=== PATIENT | female | born 1995 | race African-American/Black ===

== ENCOUNTER 2020-02-29 17:11 | Inpatient (IN) ==
[~2020-02-29 17:11] MED LIST: Famotidine 20 MG/2 ML VIAL IVP PRN; Metoclopramide 10 MG/2 ML VIAL IVP PRN; Naloxone 0.4 MG/ML INJ IVP PRN
[2020-02-29] MEDS ORDERED: Penicillin G Potassium 5,000,000 UNIT in 0.9 % Sodium Chloride Mini Bag 100 ML IVPB ONE (17:16)
[2020-02-29] MEDS ORDERED: Ringers Solution, Lactated 1,000 ML ONE (17:27)
[2020-02-29] MEDS ORDERED: Ringers Solution, Lactated 1,000 ML IVC SCH (17:30)
[2020-02-29 17:34] LABS: Hemoglobin 8.5 g/dL (11.5-15.4)
[2020-02-29 17:35] LABS: Eosinophils % 0.3 %
[2020-02-29 17:36] LABS: Basophils % 0.2 %; Hematocrit 29.7 % (35.3-44.9); Immature Granulocytes % 0.4 % (0-4); Lymphocytes # 1.4 K/mcL (0.6-4.6); Lymphocytes % 12.9 %; Mean Corpuscular HGB Conc 28.6 g/dL (31.6-35.5); Mean Corpuscular Hemoglobin 19.1 pg (28.0-33.3); Mean Corpuscular Volume 66.7 fL (83.0-100.0); Mean Platelet Volume 10.2 fL (9.4-12.4); Monocytes # 0.6 K/mcL (0.0-1.3); Monocytes % 5.8 %; Neutrophils # 8.7 K/mcL (1.6-8.9); Nucleated Red Blood Cells 0.2 /100 WBC (0); Platelet Count 266 K/mcL (140-400); Red Blood Count 4.45 M/mcL (3.82-4.97); Segmented Neutrophils % 80.4 %; White Blood Count 10.8 K/mcL (4.3-11.1)
[2020-02-29 17:48] LABS: Amphetamine Screen,Urine Negative ng/mL (Cutoff=1000); Barbiturate Screen,Urine Negative ng/mL (Cutoff=200); Benzodiazepines Screen,Urine Negative ng/mL (Cutoff=200); Cannabinoid Screen,Urine Positive ng/mL (Cutoff = 50); Cocaine Screen,Urine Negative ng/mL (Cutoff= 300); Opiate Screen,Urine Negative ng/mL (Cutoff=300); Phencyclidine Screen,Urine Negative ng/mL (Cutoff=25)
[2020-02-29] MEDS ORDERED: Oxytocin 20 units/ LR 1000 mL 20 UNIT/1,000 ML BAG IVC ONE ×2 (17:48→20:17)
[2020-02-29] MEDS ORDERED: Lidocaine 1% 20 ML MDV ONE (17:49)
[2020-02-29 18:01] LABS: Hypochromasia Present (Not Present); Polychromasia 1+ (Not Present)
[2020-02-29] MEDS ORDERED: Ibuprofen 600 MG TABLET PO ONE (19:16)
[2020-02-29] MEDS ORDERED: Penicillin G Potassium 2,500,000 UNIT/105 ML MLS IVPB SCH (21:00)
[2020-02-29] MEDS: Ibuprofen 600 MG TABLET PO PRN (23:34)
[2020-03-01] MEDS ORDERED: Prenatal Vit/FA 1 EACH TABLET PO SCH (09:30)
[2020-03-01] MEDS: Ibuprofen 600 MG TABLET PO PRN (09:53)
[2020-03-01 16:29] VITALS: BP 113/59
== END 2020-03-01 19:04 | disposition home or self-care (01) | DRG 560 ==
LOC: 1NENULAB → 1NENUOBS 20:57
PROVIDERS: ADMIT Obstetrics & Gynecology; ATTEND Obstetrics & Gynecology